=== PATIENT | female | born 1965 | race Caucasian/White ===

== ENCOUNTER 2019-11-03 03:25 | Emergency (ER) | payer MEDICAID ==
[~2019-11-03] VITALS: Ht 154.9 cm; Wt 96.0 kg
[2019-11-03 03:59] VITALS: BP 143/77
[2019-11-03] MEDS ORDERED: DIPHENHYDRAMINE 25MG CAPSULE PO ONE (04:30)
[2019-11-03] MEDS ORDERED: PREDNISONE 20MG TABLET PO ONE (04:30)
[2019-11-03] MEDS ORDERED: FAMOTIDINE 20MG TABLET PO ONE (04:30)
== END 2019-11-03 04:59 | disposition home or self-care (01) ==
LOC: ER 03:25
DX: T78.49XA Other allergy, initial encounter (principal); X58.XXXA Exposure to other specified factors, initial encounter; E05.90 Thyrotoxicosis, unspecified without thyrotoxic crisis or storm
CPT/HCPCS: 99284; J7512; Q0163

== ENCOUNTER 2020-07-12 13:03 | Emergency (ER) | payer MEDICAID ==
[~2020-07-12] VITALS: Ht 154.9 cm; Wt 95.0 kg
[2020-07-12] MEDS ORDERED: METHYLPREDNISOLONE SOD SUCC 125 MG/2 ML VIAL IV ONE (13:45)
[2020-07-12] MEDS ORDERED: FAMOTIDINE 20MG/2ML VIAL IV ONE (13:45)
[2020-07-12] MEDS ORDERED: DIPHENHYDRAMINE 50MG/ML VIAL IV ONE (13:45)
[2020-07-12] MEDS ORDERED: SODIUM CHLORIDE 0.9% 1,000 ML IV ONE (13:45)
[2020-07-12] MEDS ORDERED: P50 MT (15:12)
[2020-07-12] MEDS ORDERED: DIPH25TA62 PO (15:12)
[2020-07-12 15:30] VITALS: BP 139/80
== END 2020-07-12 17:47 | disposition home or self-care (01) ==
LOC: ER 13:26
DX: T78.40XA Allergy, unspecified, initial encounter (principal); R50.9 Fever, unspecified; R05 Cough; E11.9 Type 2 diabetes mellitus without complications; E03.9 Hypothyroidism, unspecified; E86.0 Dehydration; Z79.899 Other long term (current) drug therapy; X58.XXXA Exposure to other specified factors, initial encounter
CPT/HCPCS: 71045; 96361; 96374; 96375; 99284; J1200; J2930; J3490; J7030